=== PATIENT | female | born 1985 | race Caucasian/White ===

== ENCOUNTER 2024-12-02 15:42 | Emergency (ER) | payer OTHER ==
[~2024-12-02] VITALS: Ht 172.7 cm; Wt 90.7 kg
[~2024-12-02 15:42] MED LIST: ALBU90OI6 INH; Amoxicillin500 MG PO; CODGUAEL PO; CRUTCH4 USE; Citrate Of Mag300 ML PO; Cleocin HCl300 MG PO; Depo-Prove400 MG/1 M IM; Flonase 0.05% N16 GM; HYDACE5 PO; IBUP600 PO; IBUP800 PO; MEDR150I IM; Miralax17 GM PO; Norco 5-325 Ta1 EACH PO; ONDA4 PO; PHENA100 PO; PHENA200 PO; SULTRIDS PO; Ultram50 MG PO
[2024-12-02] MEDS ORDERED: Albuterol 2.5 MG/3 ML VIAL INH SCH ×2 (15:55→17:25)
[2024-12-02] MEDS ORDERED: Ipratropium/Albuterol SulF 2.5-0.5MG/3 ML Amp INH ONE (15:55)
[2024-12-02] MEDS ORDERED: PredniSONE 20 MG Tab PO ONE (15:55)
[2024-12-02 18:56] VITALS: BP 111/62
[2024-12-02] MEDS ORDERED: RX Prepack Albuterol 1 PREPACK/6.7 GM INH UD ONE (19:05)
[2024-12-02] MEDS ORDERED: PRED20 PO (19:10)
== END 2024-12-02 19:22 | disposition home or self-care (01) ==
LOC: ER 15:42
DX: J20.9 Acute bronchitis, unspecified (principal); F17.200 Nicotine dependence, unspecified, uncomplicated
CPT/HCPCS: 71046; 94644; 94645; 94664; 99285-25; A9270; J7512